=== PATIENT | female | born 1990 | race Caucasian/White ===

== ENCOUNTER 2019-02-14 05:00 | Emergency (ER) | payer BC ==
[2019-02-14] MEDS ORDERED: Morphine 4 MG/ML VIAL ONE (05:47)
[2019-02-14] MEDS ORDERED: Ondansetron PF 4 MG/2 ML Vial ONE (05:48)
--- NOTE | 2019-02-14 14:02 | ULT ---
RIGHT UPPER QUADRANT ULTRASOUND: INDICATIONS: Right upper quadrant pain. FINDINGS: Overlying bowel gas heavily limits image detail. The visualized aspects of the pancreatic head, proxi mal aorta and IVC appear within normal limits. No focal hepatic lesion is evident. Appropriate hepatopetal flow is seen within the right main portal vein. The liver was slightly enlarged, measuring 19.5 cm. There is a large shadowing stone within th e gallbladder neck. The gallbladder is mildly distended, measuring 9.4 cm. There is report of a posit naomi sonographic Luciano sign. The gallbladder wall measures 2.4 mm. No pericholecystic fluid is eviden t. The common bile duct measures 3.7 mm. The right kidney measures 11.5 cm in length. No hydronephros is is evident. IMPRESSION: 1. Cholelithiasis with mild distention of the gallbladder and a positive sonographic sign is suspicio us for acute calculous cholecystitis. If the clinical examination remains equivocal, a HIDA scan may be helpful for further characterization. 2. Mild hepatomegaly. 3. Findings were discussed with Dr. Rosas at 0700 hours. CODE CR POS: OFF
[2019-02-14 16:17] LABS: ALT (SGPT) 24 U/L (8-55); AST (SGOT) 21 U/L (5-34); Albumin 3.9 g/dL (3.5-5.0); Alkaline Phosphatase 82 U/L (40-110); Anion Gap 11 mmol/L (10-20); BUN (Urea Nitrogen) 10 mg/dL (7.0-18.7); Bilirubin, Total 0.2 mg/dL (0.2-1.2); Calc. Creatinine Clearance 0 mL/min (70-130); Calcium 9.2 mg/dL (7.8-10.44); Carbon Dioxide 22 mmol/L (22-29); Chloride 108 mmol/L (98-107); Estimated GFR-MDRD 85; Globulin 3.2 g/dL (2.4-3.5); Glucose 94 mg/dL (70-105); Lipase 27 U/L (8-78); Potassium 4.2 mmol/L (3.5-5.1); Protein, Total 7.1 g/dL (6.0-8.3); Sodium 137 mmol/L (136-145)
[2019-02-14 16:21] LABS: BHCG - Serum POSITIVE (NEGATIVE); Pregnancy Test - Urine (BHCG) POSITIVE (Negative); Pregs Control Background? CLEAR/WHITE (CLR/WHITE); Pregs Control Bar Appear? YES (CONTROL BAR); Pregu Control Background? CLEAR/WHITE (CLR/WHITE); Pregu Control Bar Appear? YES (CONTROL BAR); Specific Gravity 1.028 (1.002-1.036)
[2019-02-14 16:22] LABS: Bilirubin Negative (Negative); Blood, Urine Negative (Negative); Clarity Clear (Clear); Glucose, Urine (Dipstick) Negative (Negative); Leukocyte Negative Leu/uL (Negative); Nitrite Negative (Negative); Protein, Urine (Dipstick) Negative (Neg-Trace)
[2019-02-14 16:59] LABS: %Lymphocytes 34.7 % (21.0-51.0); %Monocytes 9.5 % (0.0-10.0); %Neutrophils 52.9 % (42.0-75.0); Hemoglobin 13.8 g/dL (12.0-16.0); Mean Corpuscular HGB CONC 33.1 g/dL (32.0-36.0); Mean Corpuscular Hemoglobin 27.3 pg (27.0-31.0); Mean Corpuscular Volume 82.4 fL (78.0-98.0); Mean Platelet Volume 7.3 fL (7.4-10.4); Platelet Count 325 thou/uL (130-400); RBC Distribution Width 12.8 % (11.5-14.5); Red Blood Cell (RBC) Count 5.06 mill/uL (4.20-5.40); White Blood Cell (WBC) Count 6.5 thou/uL (4.8-10.8)
[2019-02-14 17:00] LABS: #Basophils 0.1 thou/uL (0.0-0.2); #Eosinphils 0.1 thou/uL (0.0-0.7); #Lymphocytes 2.3 thou/uL (1.20-3.40); #Monocytes 0.6 thou/uL (0.11-0.59); #Neutrophils 3.4 thou/uL (1.40-6.50)
== END 2019-02-14 06:56 | disposition home or self-care (01) ==
LOC: ERS 05:00
DX: K80.20 Calculus of gallbladder without cholecystitis without obstruction (principal)
CPT/HCPCS: 36415; 76705; 80053; 81003; 81025; 83690; 84703; 85025; 93005; 96361; 96374; 96375; J2270; J2405

== ENCOUNTER 2020-02-26 06:29 | Outpatient (CLI) | payer OTHER ==
[2020-02-26 11:06] LABS: BHCG - Serum Negative (NEGATIVE); Pregs Control Background? CLEAR/WHITE (CLR/WHITE); Pregs Control Bar Appear? YES (CONTROL BAR)
[2020-02-26 11:24] LABS: #Basophils 0.1 10x3/uL (0.0-0.2); #Eosinphils 0.3 10x3/uL (0.0-0.5); #Monocytes 0.5 10x3/uL (0.0-1.1); #Neutrophils 1.9 10x3/uL (1.5-8.4); %Basophils 1.2 % (0.0-2.0); %Eosinophils 5.8 % (0.0-6.0); %Lymphocytes 38.8 % (18.0-47.0); %Monocytes 10.6 % (0.0-10.0); %Neutrophils 43.4 % (40.0-75.0); Hemoglobin 14.3 g/dL (12.0-16.0); Mean Corpuscular HGB CONC 32.2 G/DL (32.0-36.0); Mean Corpuscular Hemoglobin 26.5 PG (27.0-33.0); Mean Corpuscular Volume 82.2 fl (80.0-100.0); Mean Platelet Volume 9.9 fl (7.4-10.4); Platelet Count 331 10x3/uL (130-400); RBC Distribution Width 13.2 % (11.5-14.5); White Blood Cell (WBC) Count 4.3 10x3/uL (4.5-11.0)
[2020-02-26 11:33] LABS: ALT (SGPT) 18 U/L (8-55); AST (SGOT) 17 U/L (5-34); Albumin 4.2 g/dL (3.5-5.0); Alkaline Phosphatase 89 U/L (40-110); Anion Gap 15 mmol/L (10-20); BUN (Urea Nitrogen) 12 mg/dL (7.0-18.7); Bilirubin, Total 0.4 mg/dL (0.2-1.2); Calc. Creatinine Clearance 0 mL/min (70-130); Calcium 9.4 mg/dL (7.8-10.44); Carbon Dioxide 19 mmol/L (22-29); Chloride 108 mmol/L (98-107); Globulin 3.1 g/dL (2.4-3.5); Glucose 97 mg/dL (70-105); Potassium 4.7 mmol/L (3.5-5.1); Protein, Total 7.3 g/dL (6.0-8.3); Sodium 137 mmol/L (136-145)
[2020-02-26 19:56] LABS: SARS-CoV-2 MS2 Positive; SARS-CoV-2 N Gene Negative; SARS-CoV-2 S Gene Negative; SARS-CoV-2 by NAA Not Detected (NotDetected); SARS-CoV-2 orf1ab Negative
== END 2020-02-26 06:30 | disposition home or self-care (01) ==
LOC: LABBT 06:29
PROVIDERS: ATTEND Specialist
DX: Z01.812 Encounter for preprocedural laboratory examination (principal); Z20.828 Contact with and (suspected) exposure to other viral communicable diseases; K80.20 Calculus of gallbladder without cholecystitis without obstruction; R10.11 Right upper quadrant pain
CPT/HCPCS: 80053; 84703; 85025; 87635; U0003

== ENCOUNTER 2020-02-29 08:16 | Day surgery (SDC) | payer OTHER ==
--- NOTE | 2020-02-28 12:11 | HP ---
HISTORY OF PRESENT ILLNESS: Seema Aaron is a 29-year-old obese female, followed by Dr. Luna, for symptomatic gallstones. I saw her initially in March, but financially she was not able to attend to this problem. Plan is for laparoscopic video cholecystectomy due to symptomatic gallstones. MEDICATIONS: Celexa. PAST MEDICAL HISTORY: Hypothyroidism, miscarriage, and gallstones. PAST SURGICAL HISTORY: Right femur fracture repair, age 9. SOCIAL HISTORY: Alcohol, none. Tobacco, one pack per day. ALLERGIES: ZOLOFT, HEARTBURN. REVIEW OF SYSTEMS: Noncontributory. PHYSICAL EXAMINATION: VITAL SIGNS: 335 pounds, 67 inches, 122/71, degrees. HEAD, EARS, EYES, NOSE, AND THROAT: Unremarkable. Sclerae nonicteric. SKIN: Nonjaundiced. LUNGS: Clear to auscultation. CARDIAC: Regular rate and rhythm, without murmur or gallop. ABDOMEN: Soft, nontender, and obese. EXTREMITIES: Unremarkable. ASSESSMENT AND PLAN: Symptomatic cholelithiasis. PLAN: Laparoscopic video cholecystectomy. She understands risks and benefits, consents. Job ID: [id number]
[2020-02-28 14:36] VITALS: BMI 51.7
[2020-02-29] MEDS ORDERED: Ketorolac Tromethamine 30 MG/ML VIAL ONE (08:54)
[2020-02-29] MEDS ORDERED: Acetaminophen 500 MG TAB ONE (08:54)
[2020-02-29] MEDS ORDERED: Scopolamine 1.5 mg/72 hour Patch ONE (08:54)
[2020-02-29] MEDS ORDERED: Atropine Sulfate 0.4 mg/1 ml Vial ONE (09:31)
[2020-02-29] MEDS ORDERED: Lidocaine 1% PF 5 ML VIAL ONE (09:31)
[2020-02-29] MEDS ORDERED: Glycopyrrolate 0.2 MG/ML 5 ML SYRINGE ONE ×2 (09:31)
[2020-02-29] MEDS ORDERED: Ondansetron PF 4 MG/2 ML Vial ONE (09:31)
[2020-02-29] MEDS ORDERED: PROPOFOL 200 MG/20 ML VIAL ONE (09:31)
[2020-02-29] MEDS ORDERED: Dexamethasone 20 MG/5 ML VIAL ONE (09:31)
[2020-02-29] MEDS ORDERED: Rocuronium Bromide 10 MG/ML (10ML VIAL) ONE (09:31)
[2020-02-29] MEDS ORDERED: Fentanyl 100 MCG/2 ML VIAL ONE ×3 (10:30→12:56)
[2020-02-29] MEDS ORDERED: Bupivacaine 0.25% HCL 30 ML VIAL ONE (10:30)
[2020-02-29] MEDS ORDERED: Lidocaine 1% w/Epinephrine 1:100K 20 ML VIAL ONE (10:30)
--- NOTE | 2020-02-29 13:41 | OP ---
DATE OF PROCEDURE: 02/29/2020 PREOPERATIVE DIAGNOSES: Cholecystitis, cholelithiasis, obesity. POSTOPERATIVE DIAGNOSES: Cholecystitis, cholelithiasis, obesity, with stone impacted in the gallbladder outlet with gallbladder obstruction. ANESTHESIA: General, local 0.5% Marcaine 30 mL mixed with 1% Xylocaine with epinephrine 20 mL. DESCRIPTION OF PROCEDURE: The patient was taken to the operating room, where under general anesthesia, abdomen was prepared with ChloraPrep and draped in routine fashion. Local anesthetic was infiltrated in the skin and subcutaneous tissue about the operative sites. Infraumbilical incision made, pneumoperitoneum to 15 mmHg obtained with Veress needle, replaced with a 5 port, video laparoscope inserted. Right subxiphoid incision made and an 11 port placed. Right subcostal incision made in midclavicular anterior axillary line and 5 ports placed. Liver appeared to be normal. Gallbladder wall was slightly thickened. Fundus was grasped and retracted cephalad, infundibulum grasped and retracted laterally. Cystic artery and duct carefully dissected free. Critical view obtained. Dissection was difficult as the gallbladder outlet was obstructed with a large stone and this distorted the anatomy, requiring careful dissection of the infundibulum to obtain the critical view. Cystic artery and duct doubly clipped and divided. Gallbladder dissected free from liver bed, obtaining good hemostasis prior to division of final peritoneal attachments, and the large stone fragmented to enable removal, and gallstones and gallbladder placed in endobag and removed. Good hemostasis assured with cautery. Irrigant and pneumoperitoneum evacuated. All instruments were removed. All skin incisions were approximated with interrupted subdermal 4-0 Monocryl and Vadito glue applied. Job ID: [id number]
[2020-02-29] MEDS ORDERED: HYDROcodone/Acetaminophen 5/325 mg Tablet ONE (14:11)
== END 2020-02-29 14:40 | disposition home or self-care (01) ==
LOC: SDC 08:16
PROVIDERS: ATTEND Specialist
PROC: 0FT44ZZ Resection of Gallbladder, Percutaneous Endoscopic Approach (ICD-10-PCS; principal; 2020-02-29)
DX: K80.11 Calculus of gallbladder with chronic cholecystitis with obstruction (principal); E03.9 Hypothyroidism, unspecified; F17.210 Nicotine dependence, cigarettes, uncomplicated; E66.9 Obesity, unspecified; Z68.43 Body mass index [BMI] 50.0-59.9, adult; Z79.899 Other long term (current) drug therapy; Z88.8 Allergy status to other drugs, medicaments and biological substances
CPT/HCPCS: 88304; J0461; J0690; J1100; J1885; J2405; J2704; J3010; S0020